=== PATIENT | female | born 1970 | race American Indian/Alaskan Native ===

== ENCOUNTER 2019-02-01 06:39 | Emergency (ER) | payer OTHER, SELFPAY ==
[2019-02-01 06:47] VITALS: BP 130/80
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
== END 2019-02-01 09:46 | disposition left against medical advice (07) ==
LOC: ED 06:39
DX: M54.5 Low back pain (principal); R42 Dizziness and giddiness
CPT/HCPCS: 99281